=== PATIENT | male | born 1990 | race Two or more races ===

== ENCOUNTER 2021-08-18 19:43 | Inpatient (IN) | payer MEDICAID, OTHER ==
[~2021-08-18] VITALS: Ht 177.8 cm; Wt 109.0 kg
[2021-08-18] MEDS ORDERED: PANTOPRAZOLE 40 MG/10 ML VIAL INJ IV ONE (20:15)
[2021-08-18] MEDS ORDERED: SODIUM CHLORIDE 0.9% 1,000 ML IV ONE (20:30)
[2021-08-18] MEDS ORDERED: MORPHINE SULFATE 4 MG/ML SYR/VIAL IV ONE (20:30)
[2021-08-18 21:18] LABS: Basophils # (auto) 0.1 10 ^3/uL (0-0.2); Eosinophils # (auto) 0.2 10 ^3/uL (0-0.8); Eosinophils % (auto) 2.5 % (0.0-7.0); Hematocrit 39.1 % (41.0-53.0); Hemoglobin 13.6 g/dL (13.5-17.5); Lymphocytes # (auto) 2.5 10 ^3/uL (0.4-5.4); Lymphocytes % (auto) 36.4 % (10.0-50.0); Mean Corpuscular Hemoglobin 32.6 pg (28.0-32.0); Mean Corpuscular Hgb Conc. 34.9 g/dL (32.0-36.0); Mean Corpuscular Volume 93.2 fL (80.0-100.0); Monocytes # (auto) 0.3 10 ^3/uL (0-1.3); Monocytes % (auto) 4.7 % (0.0-12.0); Neutrophils # (auto) 3.8 10 ^3/uL (1.6-8.6); Neutrophils % (auto) 54.4 % (37.0-80.0); Nucleated Red Blood Cells % 0.2 %; Red Blood Cells 4.19 10^6/uL (4.5-5.90); Red Cell Distribution Width 15.1 % (11.8-14.3)
[2021-08-18] MEDS ORDERED: ONDANSETRON HCL 4 MG/2 ML VIAL IV ONE (21:30)
[2021-08-18] MEDS ORDERED: HYDROmorphone HCL 2 MG/ML VL IV ONE (21:30)
[2021-08-18 21:34] LABS: INR 1.03 (0.9-1.15)
[2021-08-18 21:35] LABS: Albumin 3.3 g/dL (3.4-5.0); BUN/Creatinine Ratio 14.6; Calcium 7.8 mg/dL (8.5-10.1)
[2021-08-18 21:38] LABS: Bilirubin, Total 0.2 mg/dL (0.2-1.0); Total Protein 7.1 g/dL (6.4-8.2)
[2021-08-18] MEDS ORDERED: DOCUSATE SOD 100 MG CAP PO PRN (23:45)
[2021-08-18] MEDS ORDERED: LORazepam 2MG/ML-1ML VIAL IV PRN (23:45)
[2021-08-18] MEDS ORDERED: ACETAMINOPHEN 325 MG TAB PO PRN (23:45)
[2021-08-19] MEDS ORDERED: HYDROmorphone HCL 2 MG/ML VL IV ONE (00:15)
[2021-08-19] MEDS ORDERED: NITROGLYCERIN 0.4 MG SL TAB SL PRN (00:15)
[2021-08-19] MEDS ORDERED: MORPHINE SULFATE INJECTION 2 MG/ML SYRG IV PRN (00:15)
[2021-08-19 02:00] VITALS: BP 118/67
[2021-08-19] MEDS: ONDANSETRON HCL 4 MG/2 ML VIAL IV PRN ×4 (02:35→21:48)
[2021-08-19] MEDS: HYDROcodone-ACET 5/325MG TAB PO PRN ×3 (02:36→16:27)
[2021-08-19] MEDS: MORPHINE SULFATE 4 MG/ML SYR/VIAL IV PRN ×5 (05:23→23:40)
[2021-08-19] MEDS ORDERED: PANT40T PO (05:48)
[2021-08-19] MEDS ORDERED: LOS25T PO (05:48)
[2021-08-19] MEDS ORDERED: ONDA-144 PO (05:48)
[2021-08-19] MEDS ORDERED: MORP15TA PO (05:50)
[2021-08-19] MEDS ORDERED: ALBU108A5 INH (05:50)
[2021-08-19] MEDS ORDERED: SODIUM CHLOR 0.9% PF (SALINE LOCK) 10ML VIAL/SYR IV SCH (06:00)
[2021-08-19 08:25] VITALS: BP 145/92
[2021-08-19 08:25] LABS: Basophils # (auto) 0.1 10 ^3/uL (0-0.2); Basophils % (auto) 0.7 % (0.0-2.0); Eosinophils # (auto) 0.1 10 ^3/uL (0-0.8); Eosinophils % (auto) 1.4 % (0.0-7.0); Hematocrit 38.1 % (41.0-53.0); Hemoglobin 13.4 g/dL (13.5-17.5); Lymphocytes # (auto) 2.3 10 ^3/uL (0.4-5.4); Lymphocytes % (auto) 27.6 % (10.0-50.0); Mean Corpuscular Hemoglobin 32.4 pg (28.0-32.0); Mean Corpuscular Hgb Conc. 35.2 g/dL (32.0-36.0); Mean Corpuscular Volume 92.2 fL (80.0-100.0); Monocytes # (auto) 0.3 10 ^3/uL (0-1.3); Monocytes % (auto) 3.9 % (0.0-12.0); Neutrophils # (auto) 5.6 10 ^3/uL (1.6-8.6); Neutrophils % (auto) 66.4 % (37.0-80.0); Nucleated Red Blood Cells % 0.1 %; Red Blood Cells 4.13 10^6/uL (4.5-5.90); Red Cell Distribution Width 15.2 % (11.8-14.3); White Blood Cell 8.4 10^3/uL (4.4-10.8)
[2021-08-19 08:39] LABS: Potassium 3.7 mmol/L (3.5-5.1)
[2021-08-19] MEDS: THIAMINE 100mg/ml INJ (200mg/2ml VIAL) IV SCH (08:49)
[2021-08-19] MEDS: PANTOPRAZOLE 40 MG/10 ML VIAL INJ IV SCH (08:50)
[2021-08-19] MEDS: FOLIC ACID 1 MG TAB PO SCH (08:50)
[2021-08-19] MEDS: MULTIPLE VITAMIN TAB PO SCH (08:50)
[2021-08-19] MEDS: ENOXAPARIN SOD 40 MG/0.4 ML SYRINGE SC SCH (08:51)
[2021-08-19 08:54] LABS: Albumin 3.4 g/dL (3.4-5.0); BUN/Creatinine Ratio 15.7; Bilirubin, Total 0.2 mg/dL (0.2-1.0); Calcium 8.5 mg/dL (8.5-10.1)
[2021-08-19] MEDS ORDERED: FOLIC ACID 1 MG, MULTIPLE VITAMIN 10 ML, MAGNESIUM SULF SDV 50% 8 MEQ, THIAMINE INJ 100... INJ ONE ×5 (12:00)
[2021-08-19 12:10] VITALS: BP 147/99
[2021-08-19 16:25] VITALS: BP 146/101
[2021-08-19 22:00] VITALS: BP 142/91
[2021-08-19] MEDS: LACTATED RINGER'S 1,000 ML IV SCH (23:50)
[2021-08-20] MEDS: MORPHINE SULFATE 4 MG/ML SYR/VIAL IV PRN ×3 (04:48→19:01)
[2021-08-20 05:00] VITALS: BP 138/95
[2021-08-20 07:04] LABS: Basophils # (auto) 0.1 10 ^3/uL (0-0.2); Eosinophils # (auto) 0.3 10 ^3/uL (0-0.8); Eosinophils % (auto) 4.1 % (0.0-7.0); Hematocrit 39.8 % (41.0-53.0); Lymphocytes # (auto) 1.9 10 ^3/uL (0.4-5.4); Lymphocytes % (auto) 24.2 % (10.0-50.0); Mean Corpuscular Hemoglobin 32.1 pg (28.0-32.0); Mean Corpuscular Hgb Conc. 35.2 g/dL (32.0-36.0); Mean Corpuscular Volume 91.3 fL (80.0-100.0); Monocytes # (auto) 0.4 10 ^3/uL (0-1.3); Monocytes % (auto) 5.3 % (0.0-12.0); Neutrophils # (auto) 5.1 10 ^3/uL (1.6-8.6); Neutrophils % (auto) 65.4 % (37.0-80.0); Nucleated Red Blood Cells % 0.1 %; Red Blood Cells 4.36 10^6/uL (4.5-5.90); Red Cell Distribution Width 15.3 % (11.8-14.3); White Blood Cell 7.7 10^3/uL (4.4-10.8)
[2021-08-20 07:14] LABS: Albumin 3.3 g/dL (3.4-5.0); Blood Urea Nitrogen 6 mg/dL (7-18); Chloride 104 mmol/L (98-107); Glucose 105 mg/dL (74-106); Lipase 94 U/L (73-393); Potassium 3.2 mmol/L (3.5-5.1); Sodium 135 mmol/L (136-145)
[2021-08-20 07:19] LABS: Alanine Aminotransferase 33 U/L (16-61); Alkaline Phosphatase 104 U/L (45-117); Anion Gap 5 (5-15); Aspartate Aminotransferase 24 U/L (15-37); BUN/Creatinine Ratio 6.8; Bilirubin, Total 0.7 mg/dL (0.2-1.0); Blood Alcohol < 3.0 mg/dL (0-5); Calcium 8.6 mg/dL (8.5-10.1); Carbon Dioxide 26 mmol/L (21-32); GFR African American 132 mL/min; GFR Non-African American 109 mL/min
[2021-08-20 09:00] VITALS: BP 157/100
[2021-08-20] MEDS: THIAMINE 100mg/ml INJ (200mg/2ml VIAL) IV SCH (09:18)
[2021-08-20] MEDS: PANTOPRAZOLE 40 MG/10 ML VIAL INJ IV SCH (09:19)
[2021-08-20] MEDS: FOLIC ACID 1 MG TAB PO SCH (09:21)
[2021-08-20] MEDS: MULTIPLE VITAMIN TAB PO SCH (09:21)
[2021-08-20] MEDS: ENOXAPARIN SOD 40 MG/0.4 ML SYRINGE SC SCH (09:22)
[2021-08-20] MEDS: LACTATED RINGER'S 1,000 ML IV SCH (12:53)
[2021-08-20 13:00] VITALS: BP 129/96
[2021-08-20] MEDS: ONDANSETRON HCL 4 MG/2 ML VIAL IV PRN ×2 (13:30→20:51)
[2021-08-20] MEDS: HYDROcodone-ACET 5/325MG TAB PO PRN ×2 (14:46→23:37)
[2021-08-20 17:00] VITALS: BP 138/87
[2021-08-20 22:02] VITALS: BP 136/92
[2021-08-21] MEDS: LACTATED RINGER'S 1,000 ML IV SCH ×2 (02:33→16:07)
[2021-08-21 05:00] VITALS: BP 171/107
[2021-08-21] MEDS: MORPHINE SULFATE 4 MG/ML SYR/VIAL IV PRN ×4 (05:15→21:05)
[2021-08-21 09:00] VITALS: BP 139/88
[2021-08-21] MEDS ORDERED: MORP15TA PO (10:20)
[2021-08-21] MEDS ORDERED: ALBU108A5 INH (10:20)
[2021-08-21] MEDS ORDERED: ONDA-144 PO ×3 (10:20→16:53)
[2021-08-21] MEDS ORDERED: LOS25T PO ×2 (10:20→16:53)
[2021-08-21] MEDS: THIAMINE 100mg/ml INJ (200mg/2ml VIAL) IV SCH (11:45)
[2021-08-21] MEDS: PANTOPRAZOLE 40 MG/10 ML VIAL INJ IV SCH (11:45)
[2021-08-21] MEDS: MULTIPLE VITAMIN TAB PO SCH (11:46)
[2021-08-21] MEDS: FOLIC ACID 1 MG TAB PO SCH (11:46)
[2021-08-21] MEDS: ENOXAPARIN SOD 40 MG/0.4 ML SYRINGE SC SCH (11:47)
[2021-08-21] MEDS: ONDANSETRON HCL 4 MG/2 ML VIAL IV PRN ×2 (12:34→18:44)
[2021-08-21 13:00] VITALS: BP 135/82
[2021-08-21] MEDS ORDERED: PANT40T PO (16:53)
[2021-08-21] MEDS ORDERED: FOLI1TAB6 PO (16:53)
[2021-08-21] MEDS ORDERED: THIA100T5 PO (16:53)
[2021-08-21 17:00] VITALS: BP 134/89
[2021-08-21 21:57] VITALS: BP 120/93
== END 2021-08-21 23:30 | disposition home or self-care (01) | DRG 282 ==
LOC: ER 19:43 → WEST WING 08-19 00:15
PROVIDERS: ADMIT Nurse Practitioner Family; ATTEND Internal Medicine
DX: K85.20 Alcohol induced acute pancreatitis without necrosis or infection (principal); I11.0 Hypertensive heart disease with heart failure; I50.9 Heart failure, unspecified; F10.129 Alcohol abuse with intoxication, unspecified; Y90.7 Blood alcohol level of 200-239 mg/100 ml; J45.909 Unspecified asthma, uncomplicated; K21.9 Gastro-esophageal reflux disease without esophagitis; Z91.19 Patient's noncompliance with other medical treatment and regimen; Z90.49 Acquired absence of other specified parts of digestive tract; Z71.41 Alcohol abuse counseling and surveillance of alcoholic; Z20.822 Contact with and (suspected) exposure to COVID-19
CPT/HCPCS: 36415; 74176; 80053; 80320; 82150; 83690; 85025; 85610; 85730; 86850; 86900; 86901; 87426; 96361; 96374; 96375; C9113; G0378; J2405

== ENCOUNTER 2021-09-02 17:23 | Emergency (ER) | payer MEDICAID ==
[~2021-09-02] VITALS: Ht 170.2 cm; Wt 99.8 kg
[~2021-09-02 17:23] MED LIST: FOLI1TAB6 PO; LOS25T PO; ONDA-144 PO; PANT40T PO; THIA100T5 PO
[2021-09-02] MEDS ORDERED: MORPHINE SULFATE INJECTION 2 MG/ML SYRG IV ONE (18:00)
[2021-09-02] MEDS ORDERED: ONDANSETRON HCL 4 MG/2 ML VIAL IV ONE (18:00)
[2021-09-02] MEDS ORDERED: methylPREDNISolone SOD SUCC 125 MG/2 ML VL ONE (18:05)
[2021-09-02] MEDS ORDERED: diphenhdrAMINE HCL 50 MG/1 ML VL ONE (18:05)
[2021-09-02 18:07] LABS: Basophils # (auto) 0.1 10 ^3/uL (0-0.2); Basophils % (auto) 1.1 % (0.0-2.0); Eosinophils # (auto) 0.1 10 ^3/uL (0-0.8); Eosinophils % (auto) 1.7 % (0.0-7.0); Hemoglobin 14.4 g/dL (13.5-17.5); Lymphocytes % (auto) 31.5 % (10.0-50.0); Mean Corpuscular Hemoglobin 31.7 pg (28.0-32.0); Mean Corpuscular Hgb Conc. 34.2 g/dL (32.0-36.0); Mean Corpuscular Volume 92.8 fL (80.0-100.0); Monocytes # (auto) 0.4 10 ^3/uL (0-1.3); Monocytes % (auto) 6.9 % (0.0-12.0); Neutrophils # (auto) 3.8 10 ^3/uL (1.6-8.6); Neutrophils % (auto) 58.8 % (37.0-80.0); Nucleated Red Blood Cells % 0.2 %; Red Blood Cells 4.53 10^6/uL (4.5-5.90); Red Cell Distribution Width 14.4 % (11.8-14.3); White Blood Cell 6.5 10^3/uL (4.4-10.8)
[2021-09-02 18:18] LABS: Albumin 3.3 g/dL (3.4-5.0); BUN/Creatinine Ratio 12.9; Calcium 8.5 mg/dL (8.5-10.1); Potassium 3.9 mmol/L (3.5-5.1)
[2021-09-02 18:28] LABS: INR 0.99 (0.9-1.15); Partial Thromboplastin Time 29.9 sec (23.6-33.0)
[2021-09-02 18:30] LABS: Bilirubin, Total 0.1 mg/dL (0.2-1.0); Total Protein 7.2 g/dL (6.4-8.2)
[2021-09-02] MEDS ORDERED: diphenhdrAMINE HCL 50 MG/1 ML VL IV ONE (18:30)
[2021-09-02] MEDS ORDERED: methylPREDNISolone SOD SUCC 125 MG/2 ML VL IV ONE (18:30)
[2021-09-02 19:14] VITALS: BP 139/94
[2021-09-02] MEDS ORDERED: cefTRIAXone 1GM/50ML D5W 50 ML IV ONE (20:45)
[2021-09-02] MEDS ORDERED: metroNIDAZOLE 500MG/100ML 100 ML IV ONE (20:45)
[2021-09-02] MEDS ORDERED: HYDROcodone-ACET 10/325MG TAB PO ONE (20:45)
[2021-09-02] MEDS ORDERED: CEPHALEXIN 250 MG CAP PO ONE (21:00)
[2021-09-02] MEDS ORDERED: STERILE WATER 10 ML ONE (21:00)
[2021-09-02] MEDS ORDERED: cefTRIAXone SOD 1,000 MG VL IM ONE (21:00)
== END 2021-09-02 20:48 | disposition home or self-care (01) ==
LOC: ER 17:24
DX: K85.90 Acute pancreatitis without necrosis or infection, unspecified (principal); R14.0 Abdominal distension (gaseous); J45.909 Unspecified asthma, uncomplicated; I50.9 Heart failure, unspecified; Z90.49 Acquired absence of other specified parts of digestive tract; Z79.899 Other long term (current) drug therapy; Z88.5 Allergy status to narcotic agent; Z88.8 Allergy status to other drugs, medicaments and biological substances
CPT/HCPCS: 36415; 71045; 74176; 80053; 83690; 84484; 85025; 85610; 85730; 93005; 96372; 96374; 96375; 99285; J0696; J1200; J2270; J2405; J2930

== ENCOUNTER 2021-09-06 21:02 | Emergency (ER) | payer MEDICAID ==
[~2021-09-06] VITALS: Ht 177.8 cm; Wt 104.3 kg
[2021-09-06 22:43] LABS: Basophils # (auto) 0.1 10 ^3/uL (0-0.2); Basophils % (auto) 0.9 % (0.0-2.0); Eosinophils # (auto) 0.1 10 ^3/uL (0-0.8); Eosinophils % (auto) 1.3 % (0.0-7.0); Hematocrit 43.7 % (41.0-53.0); Hemoglobin 15.1 g/dL (13.5-17.5); Lymphocytes # (auto) 3.4 10 ^3/uL (0.4-5.4); Lymphocytes % (auto) 38.6 % (10.0-50.0); Mean Corpuscular Hemoglobin 31.5 pg (28.0-32.0); Mean Corpuscular Hgb Conc. 34.5 g/dL (32.0-36.0); Mean Corpuscular Volume 91.2 fL (80.0-100.0); Monocytes # (auto) 0.5 10 ^3/uL (0-1.3); Monocytes % (auto) 6.1 % (0.0-12.0); Neutrophils # (auto) 4.7 10 ^3/uL (1.6-8.6); Neutrophils % (auto) 53.1 % (37.0-80.0); Nucleated Red Blood Cells % 0.2 %; Red Blood Cells 4.79 10^6/uL (4.5-5.90); Red Cell Distribution Width 14.5 % (11.8-14.3); White Blood Cell 8.8 10^3/uL (4.4-10.8)
[2021-09-06 22:49] LABS: Potassium 3.6 mmol/L (3.5-5.1)
[2021-09-06 22:54] LABS: Albumin 3.5 g/dL (3.4-5.0); BUN/Creatinine Ratio 14.6; Bilirubin, Total 0.2 mg/dL (0.2-1.0); Calcium 8.3 mg/dL (8.5-10.1); Total Protein 7.4 g/dL (6.4-8.2)
[2021-09-06] MEDS ORDERED: ONDANSETRON ODT 4 MG TAB PO ONE (23:00)
[2021-09-06] MEDS ORDERED: MORPHINE SULFATE 4 MG/ML SYR/VIAL IM ONE (23:00)
[2021-09-07] MEDS ORDERED: diphenhdrAMINE HCL 50 MG/1 ML VL IM ONE
[2021-09-07 06:45] VITALS: BP 127/86
[2021-09-08] MEDS ORDERED: PROC10TA2 PO (21:20)
== END 2021-09-07 07:02 | disposition home or self-care (01) ==
LOC: ER 21:02
DX: F10.10 Alcohol abuse, uncomplicated (principal); R10.13 Epigastric pain; F12.10 Cannabis abuse, uncomplicated; J45.909 Unspecified asthma, uncomplicated; Z88.6 Allergy status to analgesic agent
CPT/HCPCS: 36415; 80053; 80320; 83690; 85025; 86850; 86900; 86901; 96372; 99284; J1200; J2270; Q0162

== ENCOUNTER 2021-09-08 18:50 | Emergency (ER) | payer MEDICAID ==
[~2021-09-08] VITALS: Ht 172.7 cm; Wt 89.8 kg
[2021-09-08] MEDS ORDERED: HYDROmorphone HCL 2 MG/ML VL IV ONE (19:00)
[2021-09-08] MEDS ORDERED: SODIUM CHLORIDE 0.9% 1,000 ML IVB ONE (19:00)
[2021-09-08] MEDS ORDERED: ONDANSETRON HCL 4 MG/2 ML VIAL IV ONE (19:00)
[2021-09-08] MEDS ORDERED: PANTOPRAZOLE 40 MG/10 ML VIAL INJ IV ONE (19:00)
[2021-09-08 19:46] LABS: Basophils # (auto) 0.1 10 ^3/uL (0-0.2); Basophils % (auto) 0.8 % (0.0-2.0); Eosinophils # (auto) 0.1 10 ^3/uL (0-0.8); Eosinophils % (auto) 0.9 % (0.0-7.0); Hematocrit 43.4 % (41.0-53.0); Hemoglobin 15.3 g/dL (13.5-17.5); Lymphocytes # (auto) 3.7 10 ^3/uL (0.4-5.4); Mean Corpuscular Hemoglobin 31.6 pg (28.0-32.0); Mean Corpuscular Hgb Conc. 35.2 g/dL (32.0-36.0); Mean Corpuscular Volume 89.8 fL (80.0-100.0); Monocytes # (auto) 0.7 10 ^3/uL (0-1.3); Monocytes % (auto) 7.2 % (0.0-12.0); Neutrophils % (auto) 52.1 % (37.0-80.0); Nucleated Red Blood Cells % 0.2 %; Red Blood Cells 4.83 10^6/uL (4.5-5.90); Red Cell Distribution Width 14.5 % (11.8-14.3); White Blood Cell 9.5 10^3/uL (4.4-10.8)
[2021-09-08 20:01] LABS: Albumin 3.5 g/dL (3.4-5.0); Calcium 8.2 mg/dL (8.5-10.1)
[2021-09-08 20:04] LABS: BUN/Creatinine Ratio 12.8; Bilirubin, Total 0.3 mg/dL (0.2-1.0); Total Protein 7.4 g/dL (6.4-8.2)
[2021-09-08] MEDS ORDERED: PROC10TA2 PO (21:20)
[2021-09-08] MEDS ORDERED: PROCHLORPERAZINE EDISYLATE 5 MG/ML 2ML VIAL IV ONE (23:45)
[2021-09-09] MEDS ORDERED: HYDROcodone-ACET 5/325MG TAB PO ONE (03:15)
[2021-09-09 05:30] VITALS: BP 132/86
== END 2021-09-09 05:50 | disposition home or self-care (01) ==
LOC: EDBD 18:50 → ER 18:50
DX: R10.12 Left upper quadrant pain (principal); R11.2 Nausea with vomiting, unspecified; R19.7 Diarrhea, unspecified; I11.0 Hypertensive heart disease with heart failure; I50.9 Heart failure, unspecified; J45.909 Unspecified asthma, uncomplicated; Z90.49 Acquired absence of other specified parts of digestive tract; Z79.899 Other long term (current) drug therapy; Z88.5 Allergy status to narcotic agent; Z88.8 Allergy status to other drugs, medicaments and biological substances
CPT/HCPCS: 36415; 74176; 80053; 80320; 82150; 83690; 85025; 96361; 96374; 96375; 99285; C9113; J0780; J1170; J2405

== ENCOUNTER 2021-12-20 00:28 | Emergency (ER) | payer MEDICAID ==
[~2021-12-20] VITALS: Ht 177.8 cm; Wt 106.6 kg
[~2021-12-20 00:28] MED LIST changes: +PROC10TA2 PO
[2021-12-20 02:03] LABS: Basophils # (auto) 0.1 10 ^3/uL (0-0.2); Basophils % (auto) 1.2 % (0.0-2.0); Eosinophils # (auto) 0.1 10 ^3/uL (0-0.8); Eosinophils % (auto) 0.9 % (0.0-7.0); Hematocrit 40.7 % (41.0-53.0); Hemoglobin 14.1 g/dL (13.5-17.5); Lymphocytes # (auto) 2.3 10 ^3/uL (0.4-5.4); Lymphocytes % (auto) 30.8 % (10.0-50.0); Mean Corpuscular Hemoglobin 31.8 pg (28.0-32.0); Mean Corpuscular Hgb Conc. 34.6 g/dL (32.0-36.0); Monocytes # (auto) 0.4 10 ^3/uL (0-1.3); Monocytes % (auto) 5.5 % (0.0-12.0); Neutrophils # (auto) 4.6 10 ^3/uL (1.6-8.6); Neutrophils % (auto) 61.6 % (37.0-80.0); Nucleated Red Blood Cells % 0.3 %; Red Blood Cells 4.43 10^6/uL (4.5-5.90); Red Cell Distribution Width 16.4 % (11.8-14.3); White Blood Cell 7.5 10^3/uL (4.4-10.8)
[2021-12-20 02:10] LABS: INR 1.01 (0.9-1.15); Partial Thromboplastin Time 28.5 sec (23.6-33.0)
[2021-12-20 02:21] LABS: Albumin 3.6 g/dL (3.4-5.0); BUN/Creatinine Ratio 14.2; Calcium 8.8 mg/dL (8.5-10.1); Potassium 4.2 mmol/L (3.5-5.1)
[2021-12-20 02:24] LABS: Bilirubin, Total 0.2 mg/dL (0.2-1.0); Total Protein 7.5 g/dL (6.4-8.2)
[2021-12-20] MEDS ORDERED: LIDOCAINE VISCOUS 2% 15ML UD PO ONE (06:45)
[2021-12-20] MEDS ORDERED: ALUM & MAG HYDROX-SIMETH LIQ(MAALOX) 30 ML PO ONE (06:45)
[2021-12-20] MEDS ORDERED: FAMOTIDINE (10MG/ML) 2ML VL IV ONE (06:45)
[2021-12-20] MEDS ORDERED: LACTATED RINGER'S 1,000 ML IV ONE ×2 (06:45→11:15)
[2021-12-20] MEDS ORDERED: ONDANSETRON HCL 4 MG/2 ML VIAL IV ONE ×3 (06:45→20:00)
[2021-12-20] MEDS ORDERED: IOHEXOL 350 MG/ML 100ML IJ ONE (06:52)
[2021-12-20 07:41] LABS: Urine Bacteria NONE SEEN /hpf (None Seen); Urine Blood Negative /uL (Negative); Urine Mucus FEW (None Seen); Urine Specific Gravity 1.033 (1.001-1.035); Urine WBC 1 /hpf (0 - 3)
[2021-12-20] MEDS ORDERED: HYDROcodone-ACET 5/325MG TAB PO ONE (08:00)
[2021-12-20] MEDS ORDERED: MORPHINE SULFATE 4 MG/ML SYR/VIAL IV ONE (09:15)
[2021-12-20] MEDS ORDERED: METOCLOPRAMIDE HCL 5MG/ml INJ 2ml VIAL IV ONE (11:00)
[2021-12-20] MEDS ORDERED: MORPHINE SULFATE INJ 2 MG/ml SYRG IV ONE ×2 (11:15→17:45)
[2021-12-20] MEDS ORDERED: HYDROmorphone HCL 2 MG/ML VL/or syr IV ONE (20:00)
[2021-12-21] MEDS ORDERED: ONDANSETRON HCL 4 MG/2 ML VIAL IV ONE ×2 (02:30→06:30)
[2021-12-21] MEDS ORDERED: HYDROmorphone HCL 2 MG/ML VL/or syr IV ONE ×3 (02:30→09:45)
[2021-12-21] MEDS ORDERED: HYDROmorphone HCL 2 MG/ML VL/or syr ONE (02:53)
[2021-12-21 09:58] VITALS: BP 127/88
== END 2021-12-21 10:11 | disposition short-term general hospital (02) ==
LOC: ER 00:28
DX: K85.90 Acute pancreatitis without necrosis or infection, unspecified (principal); K29.70 Gastritis, unspecified, without bleeding; K86.89 Other specified diseases of pancreas; F10.10 Alcohol abuse, uncomplicated; K76.89 Other specified diseases of liver; J45.909 Unspecified asthma, uncomplicated; I11.0 Hypertensive heart disease with heart failure; I50.9 Heart failure, unspecified; Z20.822 Contact with and (suspected) exposure to COVID-19
CPT/HCPCS: 36415; 74177; 80053; 81001; 82150; 83690; 85025; 85610; 85730; 87426; 93005; 93971; 96361; 96374; 96375; 96376; 99285; J1170; J2270; J2405; J2765; J3490; Q9967

== ENCOUNTER 2022-02-04 08:40 | Inpatient (IN) | payer MEDICAID ==
[~2022-02-04] VITALS: Ht 167.6 cm; Wt 112.5 kg
[2022-02-04 10:21] LABS: Basophils # (auto) 0.1 10 ^3/uL (0-0.2); Basophils % (auto) 0.6 % (0.0-2.0); Eosinophils # (auto) 0 10 ^3/uL (0-0.8); Eosinophils % (auto) 0.1 % (0.0-7.0); Hematocrit 52.4 % (41.0-53.0); Hemoglobin 17.2 g/dL (13.5-17.5); Lymphocytes # (auto) 1.8 10 ^3/uL (0.4-5.4); Lymphocytes % (auto) 16.3 % (10.0-50.0); Mean Corpuscular Hemoglobin 30.3 pg (28.0-32.0); Mean Corpuscular Hgb Conc. 32.8 g/dL (32.0-36.0); Mean Corpuscular Volume 92.3 fL (80.0-100.0); Monocytes # (auto) 0.5 10 ^3/uL (0-1.3); Monocytes % (auto) 4.2 % (0.0-12.0); Neutrophils # (auto) 8.5 10 ^3/uL (1.6-8.6); Neutrophils % (auto) 78.8 % (37.0-80.0); Nucleated Red Blood Cells % 0.2 %; Red Blood Cells 5.67 10^6/uL (4.5-5.90); Red Cell Distribution Width 15.1 % (11.8-14.3); White Blood Cell 10.7 10^3/uL (4.4-10.8)
[2022-02-04 11:18] LABS: Albumin 3.6 g/dL (3.4-5.0); BUN/Creatinine Ratio 14.9; Calcium 8.1 mg/dL (8.5-10.1); Potassium 4.1 mmol/L (3.5-5.1)
[2022-02-04 11:22] LABS: Bilirubin, Total 1.1 mg/dL (0.2-1.0); Total Protein 7.8 g/dL (6.4-8.2)
[2022-02-04] MEDS ORDERED: ONDANSETRON HCL 4 MG/2 ML VIAL IV ONE (11:30)
[2022-02-04] MEDS ORDERED: SODIUM CHLORIDE 0.9% 1,000 ML IVB ONE (11:30)
[2022-02-04] MEDS ORDERED: MORPHINE SULFATE 4 MG/ML SYR/VIAL IV ONE (11:30)
[2022-02-04] MEDS ORDERED: PANTOPRAZOLE 40 MG/10 ML VIAL INJ IV ONE ×2 (11:30→13:45)
[2022-02-04] MEDS ORDERED: HYDROmorphone HCL 2 MG/ML VL/or syr IV ONE (12:45)
[2022-02-04] MEDS ORDERED: LORazepam 2MG/ML-1ML VIAL IV PRN (13:45)
[2022-02-04 14:05] LABS: Urine Bacteria NONE SEEN /hpf (None Seen); Urine Blood Negative /uL (Negative); Urine Budding Yeast OCCASIONAL /hpf (None Seen); Urine Mucus FEW (None Seen); Urine Specific Gravity 1.044 (1.001-1.035); Urine WBC 2 /hpf (0 - 3)
[2022-02-04 14:08] LABS: INR 1.51 (0.9-1.15)
[2022-02-04 14:15] LABS: Amphetamine Screen, Urine NEGATIVE (NEGATIVE); Barbiturate Scree,Urine NEGATIVE (NEGATIVE); Benzodiazephine Screen, Urine NEGATIVE (NEGATIVE); Cannabinoid Screen, Urine POSITIVE (NEGATIVE); Cocaine Screen, Urine NEGATIVE (NEGATIVE); Opiate Scree,Urine NEGATIVE (NEGATIVE); Phencyclidine Screen, Urine NEGATIVE (NEGATIVE)
[2022-02-04] MEDS: FOLIC ACID 1 MG, MULTIPLE VITAMIN 10 ML, THIAMINE INJ 100 MG in SODIUM CHLORIDE 0.9% 1,... INJ SCH (14:47)
[2022-02-04] MEDS: HYDROmorphone HCL 2 MG/ML VL/or syr IV PRN ×2 (15:11→19:42)
[2022-02-04] MEDS ORDERED: MIDAZOLAM HCL 2MG/2ML 2ml VIAL (1mg/ml) IV PRN (16:15)
[2022-02-04] MEDS: ONDANSETRON HCL 4 MG/2 ML VIAL IV PRN (19:41)
[2022-02-04 23:32] VITALS: BP 141/89
[2022-02-05] MEDS: HYDROmorphone HCL 2 MG/ML VL/or syr IV PRN ×5 (00:18→20:21)
[2022-02-05] MEDS: ONDANSETRON HCL 4 MG/2 ML VIAL IV PRN ×3 (00:19→17:00)
[2022-02-05 07:01] LABS: Albumin 3.1 g/dL (3.4-5.0); Calcium 7.3 mg/dL (8.5-10.1); Potassium 3.4 mmol/L (3.5-5.1)
[2022-02-05 07:06] LABS: BUN/Creatinine Ratio 11.5; Bilirubin, Total 2.4 mg/dL (0.2-1.0); Total Protein 6.3 g/dL (6.4-8.2)
[2022-02-05 07:12] LABS: Basophils # (auto) 0 10 ^3/uL (0-0.2); Basophils % (auto) 0.7 % (0.0-2.0); Eosinophils # (auto) 0.1 10 ^3/uL (0-0.8); Eosinophils % (auto) 1.6 % (0.0-7.0); Hematocrit 39.4 % (41.0-53.0); Hemoglobin 13.8 g/dL (13.5-17.5); Lymphocytes # (auto) 1.2 10 ^3/uL (0.4-5.4); Lymphocytes % (auto) 19.9 % (10.0-50.0); Mean Corpuscular Hemoglobin 32.3 pg (28.0-32.0); Mean Corpuscular Hgb Conc. 34.9 g/dL (32.0-36.0); Mean Corpuscular Volume 92.5 fL (80.0-100.0); Monocytes # (auto) 0.3 10 ^3/uL (0-1.3); Monocytes % (auto) 5.4 % (0.0-12.0); Neutrophils # (auto) 4.5 10 ^3/uL (1.6-8.6); Neutrophils % (auto) 72.4 % (37.0-80.0); Nucleated Red Blood Cells % 0.2 %; Red Blood Cells 4.26 10^6/uL (4.5-5.90); Red Cell Distribution Width 14.8 % (11.8-14.3); White Blood Cell 6.3 10^3/uL (4.4-10.8)
[2022-02-05 09:00] VITALS: BP 139/96
[2022-02-05] MEDS ORDERED: PANTOPRAZOLE 40 MG/10 ML VIAL INJ IV SCH (10:00)
[2022-02-05] MEDS ORDERED: ENOXAPARIN SOD 40 MG/0.4 ML SYRINGE SC SCH (10:00)
[2022-02-05] MEDS ORDERED: SUCRALFATE 1 GM/10 ML ORAL SUSP PO ONE (11:45)
[2022-02-05] MEDS ORDERED: LORazepam 2MG/ML-1ML VIAL IV PRN (11:45)
[2022-02-05] MEDS ORDERED: cloNIDine HCL 0.1 MG TAB PO ONE (11:45)
[2022-02-05] MEDS ORDERED: THIAMINE 100mg/ml INJ (200mg/2ml VIAL) IV ONE (11:45)
[2022-02-05] MEDS: chlordiazePOXIDE HCL 25 MG CAP PO PRN (12:36)
[2022-02-05] MEDS: SOD CHL 0.9%/ KCL 20MEQ 1,000 ML IV SCH ×2 (12:37→22:37)
[2022-02-05 13:00] VITALS: BP 134/89
[2022-02-05 13:31] LABS: Hepatitis A Ab IgM Negative; Hepatitis B Core IgM Negative; Hepatitis C Antibody Negative (Negative)
[2022-02-05 17:00] VITALS: BP 137/85
[2022-02-05] MEDS: SUCRALFATE 1 GM/10 ML ORAL SUSP PO SCH ×2 (18:56→22:52)
[2022-02-05 22:30] VITALS: BP 145/93
[2022-02-05] MEDS: PANTOPRAZOLE 40 MG/10 ML VIAL INJ IV SCH (22:52)
[2022-02-05] MEDS: FOLIC ACID 1 MG, MULTIPLE VITAMIN 10 ML, THIAMINE INJ 100 MG in SODIUM CHLORIDE 0.9% 1,... INJ SCH ×2 (22:52→23:52)
[2022-02-05] MEDS: cloNIDine HCL 0.1 MG TAB PO SCH (22:53)
[2022-02-06] MEDS: HYDROmorphone HCL 2 MG/ML VL/or syr IV PRN ×6 (00:51→23:30)
[2022-02-06] MEDS: ONDANSETRON HCL 4 MG/2 ML VIAL IV PRN ×4 (02:57→23:29)
[2022-02-06] MEDS: chlordiazePOXIDE HCL 25 MG CAP PO PRN (02:57)
[2022-02-06 05:32] VITALS: BP 133/91
[2022-02-06] MEDS: SUCRALFATE 1 GM/10 ML ORAL SUSP PO SCH ×4 (06:03→23:27)
[2022-02-06 06:13] LABS: Basophils # (auto) 0 10 ^3/uL (0-0.2); Basophils % (auto) 0.6 % (0.0-2.0); Eosinophils # (auto) 0.2 10 ^3/uL (0-0.8); Eosinophils % (auto) 2.8 % (0.0-7.0); Hematocrit 39.9 % (41.0-53.0); Hemoglobin 13.1 g/dL (13.5-17.5); Lymphocytes # (auto) 1.7 10 ^3/uL (0.4-5.4); Lymphocytes % (auto) 26.5 % (10.0-50.0); Mean Corpuscular Hemoglobin 31.1 pg (28.0-32.0); Mean Corpuscular Volume 94.2 fL (80.0-100.0); Monocytes # (auto) 0.3 10 ^3/uL (0-1.3); Monocytes % (auto) 5.5 % (0.0-12.0); Neutrophils # (auto) 4.1 10 ^3/uL (1.6-8.6); Neutrophils % (auto) 64.6 % (37.0-80.0); Red Blood Cells 4.23 10^6/uL (4.5-5.90); Red Cell Distribution Width 14.5 % (11.8-14.3); White Blood Cell 6.3 10^3/uL (4.4-10.8)
[2022-02-06 06:38] LABS: Albumin 2.6 g/dL (3.4-5.0); Calcium 7.6 mg/dL (8.5-10.1); Potassium 3.5 mmol/L (3.5-5.1)
[2022-02-06 06:43] LABS: BUN/Creatinine Ratio 7.5; Bilirubin, Total 1.7 mg/dL (0.2-1.0); Magnesium 2.2 mg/dL (1.6-2.6); Total Protein 6.2 g/dL (6.4-8.2)
[2022-02-06 09:02] VITALS: BP 134/86
[2022-02-06] MEDS: PANTOPRAZOLE 40 MG/10 ML VIAL INJ IV SCH ×2 (09:13→23:27)
[2022-02-06] MEDS: cloNIDine HCL 0.1 MG TAB PO SCH ×2 (09:14→23:28)
[2022-02-06] MEDS ORDERED: THIAMINE 100mg/ml INJ (200mg/2ml VIAL) IV SCH (10:00)
[2022-02-06] MEDS: SOD CHL 0.9%/ KCL 20MEQ 1,000 ML IV SCH (12:21)
[2022-02-06] MEDS: FOLIC ACID 1 MG, MULTIPLE VITAMIN 10 ML, THIAMINE INJ 100 MG in SODIUM CHLORIDE 0.9% 1,... INJ SCH (12:23)
[2022-02-06 13:00] VITALS: BP 137/84
[2022-02-06 16:32] VITALS: BP 150/84
[2022-02-06 16:36] VITALS: BP 150/84
[2022-02-06] MEDS ORDERED: LOSA25TA38 PO (18:56)
[2022-02-06] MEDS ORDERED: ONDA-144 PO (18:56)
[2022-02-06 22:10] VITALS: BP 134/85
[2022-02-07] MEDS: ONDANSETRON HCL 4 MG/2 ML VIAL IV PRN ×3 (04:34→13:41)
[2022-02-07] MEDS: HYDROmorphone HCL 2 MG/ML VL/or syr IV PRN ×3 (04:35→13:42)
[2022-02-07 04:40] VITALS: BP 130/88
[2022-02-07] MEDS: SUCRALFATE 1 GM/10 ML ORAL SUSP PO SCH (06:25)
[2022-02-07 07:08] LABS: Basophils # (auto) 0.1 10 ^3/uL (0-0.2); Basophils % (auto) 0.7 % (0.0-2.0); Eosinophils # (auto) 0.2 10 ^3/uL (0-0.8); Eosinophils % (auto) 2.6 % (0.0-7.0); Hematocrit 39.7 % (41.0-53.0); Hemoglobin 13.4 g/dL (13.5-17.5); Lymphocytes # (auto) 1.9 10 ^3/uL (0.4-5.4); Lymphocytes % (auto) 25.7 % (10.0-50.0); Mean Corpuscular Hemoglobin 31.8 pg (28.0-32.0); Mean Corpuscular Hgb Conc. 33.7 g/dL (32.0-36.0); Mean Corpuscular Volume 94.6 fL (80.0-100.0); Monocytes # (auto) 0.4 10 ^3/uL (0-1.3); Monocytes % (auto) 4.7 % (0.0-12.0); Neutrophils % (auto) 66.3 % (37.0-80.0); Red Cell Distribution Width 14.5 % (11.8-14.3); White Blood Cell 7.6 10^3/uL (4.4-10.8)
[2022-02-07 09:00] VITALS: BP 134/77
[2022-02-07] MEDS: cloNIDine HCL 0.1 MG TAB PO SCH (09:10)
[2022-02-07] MEDS ORDERED: PANT40TA2 PO (12:31)
[2022-02-07] MEDS ORDERED: SUCR1SUS5 PO (12:31)
[2022-02-07] MEDS ORDERED: CLON0.1T PO (12:34)
[2022-02-07 13:00] VITALS: BP 115/76
[2022-02-07 16:00] VITALS: BP 134/77
== END 2022-02-07 17:20 | disposition home or self-care (01) | DRG 241 ==
LOC: EDUNIT# 08:40 → ER 08:40 → OVERFLOW 13:38 → WEST WING 21:49
PROVIDERS: ADMIT Registered Nurse; ATTEND Internal Medicine
DX: K29.71 Gastritis, unspecified, with bleeding (principal); K85.90 Acute pancreatitis without necrosis or infection, unspecified; I50.9 Heart failure, unspecified; I11.0 Hypertensive heart disease with heart failure; K70.9 Alcoholic liver disease, unspecified; E83.51 Hypocalcemia; K74.60 Unspecified cirrhosis of liver; R74.01 Elevation of levels of liver transaminase levels; J45.909 Unspecified asthma, uncomplicated; Z20.822 Contact with and (suspected) exposure to COVID-19; E66.9 Obesity, unspecified; F10.10 Alcohol abuse, uncomplicated; K76.0 Fatty (change of) liver, not elsewhere classified; Z68.41 Body mass index [BMI] 40.0-44.9, adult; Z88.6 Allergy status to analgesic agent; Z88.8 Allergy status to other drugs, medicaments and biological substances; Z79.899 Other long term (current) drug therapy; Z90.49 Acquired absence of other specified parts of digestive tract
CPT/HCPCS: 36415; 74176; 76705; 80053; 80074; 80307; 80320; 81001; 82150; 83036; 83690; 83735; 83880; 84484; 85025; 85610; 93005; 96361; 96374; 96375; C9113; G0378; J2405

== ENCOUNTER 2022-08-24 16:34 | Inpatient (IN) | payer MEDICAID ==
[~2022-08-24] VITALS: Ht 177.8 cm; Wt 116.0 kg
[~2022-08-24 16:34] MED LIST changes: +CLON0.1T PO; -FOLI1TAB6 PO; -LOS25T PO; +LOSA25TA38 PO; +PANT40TA2 PO; -PROC10TA2 PO; +SUCR1SUS5 PO; -THIA100T5 PO
[2022-08-24] MEDS ORDERED: SODIUM CHLORIDE 0.9% 1,000 ML IV ONE (17:00)
[2022-08-24] MEDS ORDERED: SODIUM CHLORIDE 0.9% 250 ML IV ONE (17:00)
[2022-08-24] MEDS ORDERED: ONDANSETRON HCL 4 MG/2 ML VIAL IV ONE (17:00)
[2022-08-24 17:10] LABS: Basophils # (auto) 0.1 10 ^3/uL (0-0.2); Basophils % (auto) 1.1 % (0.0-2.0); Eosinophils # (auto) 0.1 10 ^3/uL (0-0.8); Eosinophils % (auto) 1.3 % (0.0-7.0); Hematocrit 42.9 % (41.0-53.0); Hemoglobin 15.3 g/dL (13.5-17.5); Lymphocytes # (auto) 2.8 10 ^3/uL (0.4-5.4); Lymphocytes % (auto) 28.3 % (10.0-50.0); Mean Corpuscular Hemoglobin 33.8 pg (28.0-32.0); Mean Corpuscular Hgb Conc. 35.6 g/dL (32.0-36.0); Mean Corpuscular Volume 94.9 fL (80.0-100.0); Monocytes # (auto) 0.6 10 ^3/uL (0-1.3); Neutrophils # (auto) 6.2 10 ^3/uL (1.6-8.6); Neutrophils % (auto) 63.3 % (37.0-80.0); Nucleated Red Blood Cells % 0.6 %; Red Blood Cells 4.52 10^6/uL (4.5-5.90); Red Cell Distribution Width 14.7 % (11.8-14.3); White Blood Cell 9.9 10^3/uL (4.4-10.8)
[2022-08-24 18:18] LABS: Anion Gap 8 (5-15); Blood Urea Nitrogen 17 mg/dL (7-18); Carbon Dioxide 19 mmol/L (21-32); Chloride 111 mmol/L (98-107); Glucose 125 mg/dL (74-106); Potassium 4.1 mmol/L (3.5-5.1); Sodium 138 mmol/L (136-145)
[2022-08-24 18:19] LABS: Alanine Aminotransferase 77 U/L (16-61); Alkaline Phosphatase 121 U/L (45-117); Aspartate Aminotransferase 62 U/L (15-37); BUN/Creatinine Ratio 12.8; Bilirubin, Total 0.3 mg/dL (0.2-1.0); Calcium 7.3 mg/dL (8.5-10.1); GFR African American 81 mL/min; GFR Non-African American 67 mL/min; Total Protein 6.7 g/dL (6.4-8.2)
[2022-08-24 18:20] LABS: Blood Alcohol 455.4 mg/dL (0-5)
[2022-08-24] MEDS ORDERED: DexAMETHasone SOD PHOS 10MG/1ML VIAL INJ IV ONE (19:15)
[2022-08-24] MEDS ORDERED: diphenhdrAMINE HCL 50 MG/1 ML VL IV ONE (19:15)
[2022-08-24] MEDS: FOLIC ACID 1 MG, MULTIPLE VITAMIN 10 ML, MAGNESIUM SULF SDV 50% 8 MEQ, THIAMINE INJ 100... INJ SCH ×5 (20:17)
[2022-08-24 21:27] LABS: Urine Bacteria NONE SEEN /hpf (None Seen); Urine Blood Negative /uL (Negative); Urine Specific Gravity 1.016 (1.001-1.035); Urine WBC 1 /hpf (0 - 3)
[2022-08-24] MEDS ORDERED: METOCLOPRAMIDE HCL 5MG/ml INJ 2ml VIAL IV ONE (21:30)
[2022-08-24] MEDS ORDERED: HYDROmorphone HCL 2 MG/ML VL/or syr IV ONE (21:30)
[2022-08-24 21:40] LABS: Amphetamine Screen, Urine NEGATIVE (NEGATIVE); Barbiturate Scree,Urine NEGATIVE (NEGATIVE); Benzodiazephine Screen, Urine NEGATIVE (NEGATIVE); Cannabinoid Screen, Urine NEGATIVE (NEGATIVE); Cocaine Screen, Urine NEGATIVE (NEGATIVE); Phencyclidine Screen, Urine NEGATIVE (NEGATIVE)
[2022-08-24 21:48] LABS: Opiate Scree,Urine NEGATIVE (NEGATIVE)
[2022-08-24] MEDS: IPRATROPIUM BROM 0.5 MG/2.5ML INH SOL NEB SCH (22:35)
[2022-08-24] MEDS: ALBUTEROL SULF 2.5 MG/0.5ML(0.5%) NEB SOLN NEB SCH (22:35)
[2022-08-25] VITALS (7 sets, daily range): BP systolic 112–132; BP diastolic 66–82
[2022-08-25] MEDS ORDERED: ONDANSETRON HCL 4 MG/2 ML VIAL IV PRN (01:30)
[2022-08-25] MEDS ORDERED: DOCUSATE SOD 100 MG CAP PO PRN (01:30)
[2022-08-25] MEDS ORDERED: NITROGLYCERIN 0.4 MG SL TAB SL PRN (01:30)
[2022-08-25] MEDS ORDERED: methylPREDNISolone SOD SUCC 40 MG/ML VL IV ONE (01:30)
[2022-08-25] MEDS ORDERED: METOCLOPRAMIDE HCL 5MG/ml INJ 2ml VIAL IV PRN (01:30)
[2022-08-25] MEDS ORDERED: LORazepam 2MG/ML-1ML VIAL IV PRN (01:30)
[2022-08-25] MEDS: ALBUTEROL SULF 2.5 MG/0.5ML(0.5%) NEB SOLN NEB SCH ×6 (01:49→22:13)
[2022-08-25] MEDS: IPRATROPIUM BROM 0.5 MG/2.5ML INH SOL NEB SCH ×6 (01:49→22:12)
[2022-08-25] MEDS: HYDROcodone-ACET 5/325MG TAB PO PRN ×5 (02:31→23:54)
[2022-08-25] MEDS: LACTULOSE 20Gm/30ML SOLN PO SCH ×6 (02:31→21:47)
[2022-08-25] MEDS: HYDROmorphone HCL 2 MG/ML VL/or syr IV PRN ×5 (04:02→21:48)
[2022-08-25] MEDS: methylPREDNISolone SOD SUCC 40 MG/ML VL IV SCH ×3 (05:13→17:14)
[2022-08-25] MEDS ORDERED: METH4PAK3 PO (05:35)
[2022-08-25] MEDS ORDERED: FOLI1TAB6 PO (05:35)
[2022-08-25] MEDS ORDERED: SUCR1TAB PO (05:35)
[2022-08-25] MEDS ORDERED: HYDR-4902 PO (05:35)
[2022-08-25] MEDS ORDERED: CARV3.1240 PO (05:35)
[2022-08-25] MEDS ORDERED: ALBUTEROL MEDNEB 2.5 mg/3ml NEB ONE ×5 (06:06→21:32)
[2022-08-25] MEDS: SODIUM CHLOR 0.9% PF (SALINE LOCK) 10ML VIAL/SYR IV SCH ×3 (06:46→21:58)
[2022-08-25] MEDS: FOLIC ACID 1 MG TAB PO SCH (08:34)
[2022-08-25] MEDS: MULTIPLE VITAMIN TAB PO SCH (08:34)
[2022-08-25] MEDS: THIAMINE HCL 100 MG TAB PO SCH (08:34)
[2022-08-25] MEDS: FAMOTIDINE (10MG/ML) 2ML VL IV SCH ×2 (08:34→21:47)
[2022-08-25] MEDS ORDERED: ENOXAPARIN SOD 40 MG/0.4 ML SYRINGE SC ONE (10:45)
[2022-08-25] MEDS ORDERED: cefTRIAXone 1GM/50ML D5W 50 ML IV ONE (10:45)
[2022-08-25 11:24] LABS: Basophils # (auto) 0 10 ^3/uL (0-0.2); Basophils % (auto) 0.2 % (0.0-2.0); Eosinophils # (auto) 0 10 ^3/uL (0-0.8); Hematocrit 40.2 % (41.0-53.0); Hemoglobin 14.2 g/dL (13.5-17.5); Lymphocytes # (auto) 0.6 10 ^3/uL (0.4-5.4); Lymphocytes % (auto) 14.9 % (10.0-50.0); Mean Corpuscular Hgb Conc. 35.4 g/dL (32.0-36.0); Mean Corpuscular Volume 93.3 fL (80.0-100.0); Monocytes # (auto) 0 10 ^3/uL (0-1.3); Monocytes % (auto) 1.1 % (0.0-12.0); Neutrophils # (auto) 3.3 10 ^3/uL (1.6-8.6); Neutrophils % (auto) 83.8 % (37.0-80.0); Nucleated Red Blood Cells % 0.1 %; Red Blood Cells 4.31 10^6/uL (4.5-5.90); Red Cell Distribution Width 14.6 % (11.8-14.3); White Blood Cell 3.9 10^3/uL (4.4-10.8)
[2022-08-25 11:42] LABS: Albumin 3.3 g/dL (3.4-5.0); BUN/Creatinine Ratio 10.3; Calcium 7.5 mg/dL (8.5-10.1); Potassium 4.1 mmol/L (3.5-5.1)
[2022-08-25 11:45] LABS: Bilirubin, Total 0.4 mg/dL (0.2-1.0); Total Protein 6.8 g/dL (6.4-8.2)
[2022-08-25] MEDS: FOLIC ACID 1 MG, MULTIPLE VITAMIN 10 ML, MAGNESIUM SULF SDV 50% 8 MEQ, THIAMINE INJ 100... INJ SCH ×5 (12:40)
[2022-08-25] MEDS ORDERED: METOPROLOL TARTRATE 1MG/1ML-5ML VIAL IV PRN (21:00)
[2022-08-25] MEDS ORDERED: DEXTROSE (50%) 50ML SYRG IV PRN (21:00)
[2022-08-25] MEDS: CARVEDILOL 3.125 MG TAB PO SCH (21:46)
[2022-08-25] MEDS ORDERED: ACCU-CHEK COMFORT CURVE STRIP VI SCH (22:00)
[2022-08-25] MEDS: ACCU-CHEK COMFORT CURVE STRIP VI SCH (22:06)
[2022-08-25] MEDS: InsuLIN REG 1unit/0.01ml Soln (100units/ml) SC SCH (22:08)
[2022-08-25] MEDS: BUDESONIDE (INHALATION) 0.5 MG/2 ML NEB NEB SCH (22:13)
[2022-08-26] MEDS ORDERED: ALBUTEROL MEDNEB 2.5 mg/3ml NEB ONE ×4 (01:43→18:05)
[2022-08-26] MEDS: ALBUTEROL SULF 2.5 MG/0.5ML(0.5%) NEB SOLN NEB SCH ×5 (01:54→18:00)
[2022-08-26] MEDS: IPRATROPIUM BROM 0.5 MG/2.5ML INH SOL NEB SCH ×5 (01:54→18:00)
[2022-08-26] MEDS: LACTULOSE 20Gm/30ML SOLN PO SCH ×6 (02:00→20:53)
[2022-08-26] MEDS: methylPREDNISolone SOD SUCC 40 MG/ML VL IV SCH ×4 (02:00→17:10)
[2022-08-26] MEDS: HYDROmorphone HCL 2 MG/ML VL/or syr IV PRN ×4 (02:10→20:55)
[2022-08-26 05:00] VITALS: BP 129/77
[2022-08-26] MEDS: BUDESONIDE (INHALATION) 0.5 MG/2 ML NEB NEB SCH ×2 (06:27→22:00)
[2022-08-26] MEDS: METOPROLOL TARTRATE 1MG/1ML-5ML VIAL IV SCH ×4 (06:29→17:11)
[2022-08-26] MEDS: SODIUM CHLOR 0.9% PF (SALINE LOCK) 10ML VIAL/SYR IV SCH ×3 (06:29→20:53)
[2022-08-26] MEDS: ACCU-CHEK COMFORT CURVE STRIP VI SCH ×4 (06:30→21:00)
[2022-08-26] MEDS: InsuLIN REG 1unit/0.01ml Soln (100units/ml) SC SCH ×4 (06:39→21:09)
[2022-08-26 07:58] LABS: Hematocrit 41.2 % (41.0-53.0); Hemoglobin 14.1 g/dL (13.5-17.5); Mean Corpuscular Hemoglobin 31.9 pg (28.0-32.0); Mean Corpuscular Hgb Conc. 34.1 g/dL (32.0-36.0); Mean Corpuscular Volume 93.6 fL (80.0-100.0); Red Cell Distribution Width 14.8 % (11.8-14.3); White Blood Cell 10.3 10^3/uL (4.4-10.8)
[2022-08-26 08:08] LABS: Basophils % (manual) 0 (0.0-2.0); Blast Cells 0; Eosinophils % (manual) 0 (0-7); Metamyelocytes % 0; Monocytes % (manual) 0 (0-12); Myelocytes % 0; Promyelocytes % 0; Reactive Lymphocytes 0
[2022-08-26 08:20] LABS: Albumin 3.5 g/dL (3.4-5.0); Calcium 8.3 mg/dL (8.5-10.1); Potassium 4.5 mmol/L (3.5-5.1)
[2022-08-26 08:23] LABS: BUN/Creatinine Ratio 9.7; Bilirubin, Total 1.1 mg/dL (0.2-1.0); Total Protein 6.9 g/dL (6.4-8.2)
[2022-08-26 09:00] VITALS: BP 126/82
[2022-08-26] MEDS: cefTRIAXone 1GM/50ML D5W 50 ML IV SCH (09:05)
[2022-08-26 09:38] LABS: Band Neutrophils % (manual) 4; Lymphocytes % (manual) 7 (10.0-50.0)
[2022-08-26] MEDS: ENOXAPARIN SOD 40 MG/0.4 ML SYRINGE SC SCH (10:24)
[2022-08-26] MEDS: CARVEDILOL 3.125 MG TAB PO SCH ×2 (10:25→20:55)
[2022-08-26] MEDS: THIAMINE HCL 100 MG TAB PO SCH (10:25)
[2022-08-26] MEDS: FOLIC ACID 1 MG TAB PO SCH (10:25)
[2022-08-26] MEDS: FAMOTIDINE (10MG/ML) 2ML VL IV SCH ×2 (10:26→20:53)
[2022-08-26] MEDS: MULTIPLE VITAMIN TAB PO SCH (10:37)
[2022-08-26] MEDS: HYDROcodone-ACET 5/325MG TAB PO PRN ×2 (12:37→19:50)
[2022-08-26 13:00] VITALS: BP 112/82
[2022-08-26] MEDS: FOLIC ACID 1 MG, MULTIPLE VITAMIN 10 ML, MAGNESIUM SULF SDV 50% 8 MEQ, THIAMINE INJ 100... INJ SCH ×5 (16:32)
[2022-08-26 17:00] VITALS: BP 134/89
[2022-08-26 22:00] VITALS: BP 146/95
[2022-08-27] MEDS: methylPREDNISolone SOD SUCC 40 MG/ML VL IV SCH ×4 (00:05→22:30)
[2022-08-27] MEDS: HYDROcodone-ACET 5/325MG TAB PO PRN ×3 (00:05→23:40)
[2022-08-27] MEDS: METOPROLOL TARTRATE 1MG/1ML-5ML VIAL IV SCH ×5 (00:12→23:39)
[2022-08-27] MEDS: LACTULOSE 20Gm/30ML SOLN PO SCH ×5 (01:00→22:40)
[2022-08-27] MEDS: HYDROmorphone HCL 2 MG/ML VL/or syr IV PRN ×5 (01:01→22:55)
[2022-08-27 05:00] VITALS: BP 120/69
[2022-08-27] MEDS: SODIUM CHLOR 0.9% PF (SALINE LOCK) 10ML VIAL/SYR IV SCH ×3 (05:26→22:40)
[2022-08-27 06:05] LABS: INR 1.17 (0.9-1.15)
[2022-08-27 06:08] LABS: Basophils # (auto) 0 10 ^3/uL (0-0.2); Eosinophils # (auto) 0 10 ^3/uL (0-0.8); Hematocrit 42.2 % (41.0-53.0); Hemoglobin 14.6 g/dL (13.5-17.5); Lymphocytes # (auto) 0.5 10 ^3/uL (0.4-5.4); Lymphocytes % (auto) 6.1 % (10.0-50.0); Mean Corpuscular Hemoglobin 32.7 pg (28.0-32.0); Mean Corpuscular Hgb Conc. 34.6 g/dL (32.0-36.0); Mean Corpuscular Volume 94.5 fL (80.0-100.0); Monocytes # (auto) 0.3 10 ^3/uL (0-1.3); Monocytes % (auto) 3.2 % (0.0-12.0); Neutrophils # (auto) 8.1 10 ^3/uL (1.6-8.6); Neutrophils % (auto) 90.7 % (37.0-80.0); Nucleated Red Blood Cells % 0.1 %; Red Blood Cells 4.46 10^6/uL (4.5-5.90); Red Cell Distribution Width 14.7 % (11.8-14.3)
[2022-08-27 06:21] LABS: Potassium 4.8 mmol/L (3.5-5.1)
[2022-08-27] MEDS: ACCU-CHEK COMFORT CURVE STRIP VI SCH ×4 (06:21→22:40)
[2022-08-27] MEDS: InsuLIN REG 1unit/0.01ml Soln (100units/ml) SC SCH ×4 (06:24→22:26)
[2022-08-27 06:36] LABS: Albumin 3.2 g/dL (3.4-5.0); BUN/Creatinine Ratio 18.8; Bilirubin, Total 0.9 mg/dL (0.2-1.0); Calcium 8.1 mg/dL (8.5-10.1); Total Protein 6.6 g/dL (6.4-8.2)
[2022-08-27] MEDS ORDERED: ALBUTEROL MEDNEB 2.5 mg/3ml NEB ONE ×2 (06:37→11:29)
[2022-08-27] MEDS: IPRATROPIUM BROM 0.5 MG/2.5ML INH SOL NEB SCH ×4 (06:39→18:15)
[2022-08-27] MEDS: ALBUTEROL SULF 2.5 MG/0.5ML(0.5%) NEB SOLN NEB SCH ×4 (06:40→18:15)
[2022-08-27] MEDS: BUDESONIDE (INHALATION) 0.5 MG/2 ML NEB NEB SCH ×2 (06:41→18:15)
[2022-08-27 09:00] VITALS: BP 117/76
[2022-08-27] MEDS: cefTRIAXone 1GM/50ML D5W 50 ML IV SCH (10:06)
[2022-08-27] MEDS: CARVEDILOL 3.125 MG TAB PO SCH ×2 (10:08→22:35)
[2022-08-27] MEDS: MULTIPLE VITAMIN TAB PO SCH (10:08)
[2022-08-27] MEDS: THIAMINE HCL 100 MG TAB PO SCH (10:08)
[2022-08-27] MEDS: FOLIC ACID 1 MG TAB PO SCH (10:08)
[2022-08-27] MEDS: ENOXAPARIN SOD 40 MG/0.4 ML SYRINGE SC SCH (10:11)
[2022-08-27] MEDS: FAMOTIDINE (10MG/ML) 2ML VL IV SCH ×2 (10:15→22:29)
[2022-08-27 13:00] VITALS: BP 105/56
[2022-08-27] MEDS: FOLIC ACID 1 MG, MULTIPLE VITAMIN 10 ML, MAGNESIUM SULF SDV 50% 8 MEQ, THIAMINE INJ 100... INJ SCH ×5 (13:14)
[2022-08-27 13:54] LABS: Hepatitis C Antibody Negative (Negative)
[2022-08-27 14:57] LABS: Hepatitis B Surface Antibody Negative (Negative)
[2022-08-27 15:36] LABS: Hepatitis A Total Antibody Negative (Negative)
[2022-08-27 16:53] VITALS: BP 132/89
[2022-08-27 20:55] LABS: Hepatitis C Antibody Negative (Negative)
[2022-08-27 21:04] VITALS: BP 132/89
[2022-08-27 22:00] VITALS: BP 129/83
[2022-08-28] MEDS: HYDROcodone-ACET 5/325MG TAB PO PRN ×3 (03:47→18:17)
[2022-08-28 05:00] VITALS: BP 107/69
[2022-08-28] MEDS ORDERED: ALBUTEROL MEDNEB 2.5 mg/3ml NEB ONE ×2 (05:43→18:25)
[2022-08-28] MEDS: ALBUTEROL SULF 2.5 MG/0.5ML(0.5%) NEB SOLN NEB SCH ×3 (06:00→19:09)
[2022-08-28] MEDS: LACTULOSE 20Gm/30ML SOLN PO SCH ×3 (06:00→22:15)
[2022-08-28] MEDS: IPRATROPIUM BROM 0.5 MG/2.5ML INH SOL NEB SCH ×3 (06:00→19:09)
[2022-08-28 06:22] LABS: Potassium 4.3 mmol/L (3.5-5.1)
[2022-08-28 06:31] LABS: Albumin 3.1 g/dL (3.4-5.0); BUN/Creatinine Ratio 26.1; Bilirubin, Total 0.7 mg/dL (0.2-1.0); Calcium 8.2 mg/dL (8.5-10.1); Total Protein 6.4 g/dL (6.4-8.2)
[2022-08-28] MEDS: methylPREDNISolone SOD SUCC 40 MG/ML VL IV SCH ×2 (06:55→18:17)
[2022-08-28] MEDS: METOPROLOL TARTRATE 1MG/1ML-5ML VIAL IV SCH ×2 (06:55→12:26)
[2022-08-28] MEDS: SODIUM CHLOR 0.9% PF (SALINE LOCK) 10ML VIAL/SYR IV SCH ×3 (06:56→22:07)
[2022-08-28] MEDS: HYDROmorphone HCL 2 MG/ML VL/or syr IV PRN ×3 (06:59→23:47)
[2022-08-28] MEDS: ACCU-CHEK COMFORT CURVE STRIP VI SCH ×4 (06:59→22:07)
[2022-08-28] MEDS: InsuLIN REG 1unit/0.01ml Soln (100units/ml) SC SCH ×4 (07:01→22:13)
[2022-08-28] MEDS ORDERED: VANCOMYCIN PER PHARMACY 0 MG IV SCH (08:00)
[2022-08-28 09:00] VITALS: BP 110/83
[2022-08-28] MEDS: BUDESONIDE (INHALATION) 0.5 MG/2 ML NEB NEB SCH ×2 (10:00→19:09)
[2022-08-28] MEDS ORDERED: VANCOMYCIN 1GM/250ML 250 ML IV SCH (10:00)
[2022-08-28] MEDS: ENOXAPARIN SOD 40 MG/0.4 ML SYRINGE SC SCH (10:23)
[2022-08-28] MEDS: MULTIPLE VITAMIN TAB PO SCH (10:23)
[2022-08-28] MEDS: CARVEDILOL 3.125 MG TAB PO SCH ×2 (10:24→22:16)
[2022-08-28] MEDS: FOLIC ACID 1 MG TAB PO SCH (10:24)
[2022-08-28] MEDS: THIAMINE HCL 100 MG TAB PO SCH (10:24)
[2022-08-28] MEDS: cefTRIAXone 1GM/50ML D5W 50 ML IV SCH (10:29)
[2022-08-28] MEDS: FAMOTIDINE (10MG/ML) 2ML VL IV SCH ×2 (10:29→22:15)
[2022-08-28 13:00] VITALS: BP 117/66
[2022-08-28] MEDS: FOLIC ACID 1 MG, MULTIPLE VITAMIN 10 ML, MAGNESIUM SULF SDV 50% 8 MEQ, THIAMINE INJ 100... INJ SCH ×5 (13:55)
[2022-08-28] MEDS ORDERED: GADOTERATE MEG 10 MMOL/20ml INJ (0.5MMOL/ml) IV ONE (15:24)
[2022-08-28 17:00] VITALS: BP 122/66
[2022-08-28 22:06] VITALS: BP 114/80
[2022-08-29 05:07] VITALS: BP 111/58
[2022-08-29 05:44] LABS: Basophils # (auto) 0 10 ^3/uL (0-0.2); Basophils % (auto) 0.1 % (0.0-2.0); Eosinophils # (auto) 0 10 ^3/uL (0-0.8); Hematocrit 42.1 % (41.0-53.0); Hemoglobin 14.8 g/dL (13.5-17.5); Lymphocytes # (auto) 1.1 10 ^3/uL (0.4-5.4); Lymphocytes % (auto) 6.9 % (10.0-50.0); Mean Corpuscular Hemoglobin 32.8 pg (28.0-32.0); Mean Corpuscular Hgb Conc. 35.2 g/dL (32.0-36.0); Mean Corpuscular Volume 93.1 fL (80.0-100.0); Monocytes # (auto) 0.7 10 ^3/uL (0-1.3); Monocytes % (auto) 4.3 % (0.0-12.0); Neutrophils # (auto) 14.1 10 ^3/uL (1.6-8.6); Neutrophils % (auto) 88.7 % (37.0-80.0); Nucleated Red Blood Cells % 0.1 %; Red Blood Cells 4.52 10^6/uL (4.5-5.90); Red Cell Distribution Width 14.8 % (11.8-14.3); White Blood Cell 15.9 10^3/uL (4.4-10.8)
[2022-08-29 05:55] LABS: Potassium 4.3 mmol/L (3.5-5.1)
[2022-08-29] MEDS: IPRATROPIUM BROM 0.5 MG/2.5ML INH SOL NEB SCH ×2 (06:00→11:58)
[2022-08-29] MEDS: ALBUTEROL SULF 2.5 MG/0.5ML(0.5%) NEB SOLN NEB SCH ×2 (06:00→11:58)
[2022-08-29 06:02] LABS: Albumin 3.1 g/dL (3.4-5.0); Bilirubin, Total 0.4 mg/dL (0.2-1.0); Calcium 8.2 mg/dL (8.5-10.1); Total Protein 6.3 g/dL (6.4-8.2)
[2022-08-29] MEDS: ACCU-CHEK COMFORT CURVE STRIP VI SCH ×3 (06:21→17:00)
[2022-08-29] MEDS: SODIUM CHLOR 0.9% PF (SALINE LOCK) 10ML VIAL/SYR IV SCH ×2 (06:22→14:00)
[2022-08-29] MEDS: InsuLIN REG 1unit/0.01ml Soln (100units/ml) SC SCH ×3 (06:28→17:00)
[2022-08-29] MEDS: LACTULOSE 20Gm/30ML SOLN PO SCH ×2 (06:35→14:00)
[2022-08-29] MEDS: methylPREDNISolone SOD SUCC 40 MG/ML VL IV SCH (06:36)
[2022-08-29] MEDS: HYDROcodone-ACET 5/325MG TAB PO PRN ×2 (06:40→13:23)
[2022-08-29 08:05] VITALS: BP 124/74
[2022-08-29] MEDS: HYDROmorphone HCL 2 MG/ML VL/or syr IV PRN (09:09)
[2022-08-29] MEDS: BUDESONIDE (INHALATION) 0.5 MG/2 ML NEB NEB SCH (10:00)
[2022-08-29] MEDS: cefTRIAXone 1GM/50ML D5W 50 ML IV SCH (10:42)
[2022-08-29] MEDS: ENOXAPARIN SOD 40 MG/0.4 ML SYRINGE SC SCH (10:43)
[2022-08-29] MEDS: FAMOTIDINE (10MG/ML) 2ML VL IV SCH (10:43)
[2022-08-29] MEDS: FOLIC ACID 1 MG TAB PO SCH (10:43)
[2022-08-29] MEDS: MULTIPLE VITAMIN TAB PO SCH (10:43)
[2022-08-29] MEDS: CARVEDILOL 3.125 MG TAB PO SCH (10:44)
[2022-08-29] MEDS: THIAMINE HCL 100 MG TAB PO SCH (10:56)
[2022-08-29] MEDS: FOLIC ACID 1 MG, MULTIPLE VITAMIN 10 ML, MAGNESIUM SULF SDV 50% 8 MEQ, THIAMINE INJ 100... INJ SCH ×5 (12:00)
[2022-08-29 12:20] VITALS: BP 114/59
[2022-08-29] MEDS ORDERED: PANT40T PO (14:59)
[2022-08-29] MEDS ORDERED: CEL100T PO (15:00)
[2022-08-29] MEDS ORDERED: MONT-8 PO (15:00)
[2022-08-29] MEDS ORDERED: SUCR1TAB PO (15:00)
[2022-08-29] MEDS ORDERED: LOSA25TA38 PO (15:00)
[2022-08-29] MEDS ORDERED: FLUT250M2 INH (15:00)
[2022-08-29] MEDS ORDERED: CARV3.1240 PO (15:00)
[2022-08-29] MEDS ORDERED: ALBU108A5 IN (15:00)
[2022-08-29] MEDS ORDERED: METF-371 PO (15:01)
[2022-08-29] MEDS ORDERED: BLOO1KIT60 XX (15:10)
[2022-08-29] MEDS ORDERED: LANC-347 XX (15:10)
[2022-08-29 15:50] VITALS: BP 114/74
[2022-08-29 16:05] VITALS: BP 150/63
== END 2022-08-29 17:00 | disposition home or self-care (01) | DRG 816 ==
LOC: ER 16:34 → TELE 08-25 01:33 → UNDOADMIN 08-25 01:33 → TELE 08-25 01:34 → TELE-EAST 08-25 03:41
PROVIDERS: ADMIT Nurse Practitioner Family; ATTEND Hospitalist
DX: T51.0X1A Toxic effect of ethanol, accidental (unintentional), initial encounter (principal); J96.00 Acute respiratory failure, unspecified whether with hypoxia or hypercapnia; K85.90 Acute pancreatitis without necrosis or infection, unspecified; N17.9 Acute kidney failure, unspecified; G31.2 Degeneration of nervous system due to alcohol; E83.51 Hypocalcemia; E88.09 Other disorders of plasma-protein metabolism, not elsewhere classified; J45.901 Unspecified asthma with (acute) exacerbation; Z20.822 Contact with and (suspected) exposure to COVID-19; I11.0 Hypertensive heart disease with heart failure; I50.9 Heart failure, unspecified; K70.10 Alcoholic hepatitis without ascites; I47.1 Supraventricular tachycardia; K29.70 Gastritis, unspecified, without bleeding
CPT/HCPCS: 36415; 70450; 71045; 74176; 74183; 76705; 80053; 80307; 80320; 81001; 82140; 82962; 83605; 83690; 83735; 83880; 84484; 85007; 85025; 85027; 85610; 86704; 86706; 86708; 86803; 87040; 87081; 87340; 87426; 93005; 93306; 94640; 96361; 96374; 96375; 97116; 97163; 97530; G0378; J0696; J1100; J1815; J2405; J3490